=== PATIENT | male | born 1970 | race Caucasian/White ===

== ENCOUNTER 2017-02-18 10:17 | Observation (INO) | payer BC ==
[2017-02-18] MEDS ORDERED: Sodium Chloride 0.9% 1,000 ML IV STA (11:18)
[2017-02-18 11:26] VITALS: O2SAT 98
[2017-02-18 11:43] LABS: ADD MANUAL DIFF? NO
[2017-02-18 11:46] LABS: PH,URINE 6.5 (4.7-8.0); URINE APPEARANCE CLEAR (CLEAR); URINE BILIRUBIN NEGATIVE (NEGATIVE); URINE BLOOD TRACE-LYSED (NEGATIVE); URINE COLOR YELLOW (YELLOW); URINE GLUCOSE (UA) NEGATIVE (NEGATIVE); URINE KETONE NEGATIVE (NEGATIVE); URINE LEUKOCYTE ESTERASE NEGATIVE Leu/uL (NEGATIVE); URINE PROTEIN NEGATIVE mg/dL (<30 mg/dL); URINE UROBILINOGEN 0.2 E.U./dL (<1 E.U./dL)
[2017-02-18 11:52] LABS: BASO # 0.02 K/mm3 (0.0-2.0); BASO % 0.3 % (0.0-3.0); EOS % 0.3 % (1.5-5.0); GRAN # 3.94 (1.4-6.5); GRAN % 64.5 % (50.0-68.0); HEMATOCRIT 43.5 % (42.0-52.0); LYMPH # 1.7 (1.2-3.4); MEAN CELL VOLUME 87.5 fL (80.0-105.0); MEAN CORPUSCULAR HEMOGLOBIN 30.4 pg (25.0-35.0); MEAN CORPUSCULAR HGB CONC 34.7 g/dl (31.0-37.0); MEAN PLATELET VOLUME 10.4 fl (7.0-11.0); MONO # 0.4 (0.1-0.6); MONO % 6.9 % (1.0-6.0); PLATELET COUNT 192 10^3/uL (120.0-450.0); RED CELL DISTRIBUTION WIDTH 13.5 % (11.5-14.5); WHITE BLOOD COUNT 6.1 10^3/ul (4.5-11.0)
[2017-02-18 11:56] LABS: URINE RBC NEGATIVE /hpf (0-2); URINE WBC NEGATIVE /hpf (0-6)
[2017-02-18 11:58] LABS: INR 1.06 (0.93-1.08); PARTIAL THROMBOPLASTIN TIME 29.2 Seconds (23.7-30.8)
--- NOTE | 2017-02-18 11:58 | ED PDOC ---
Arrival/HPI - General Chief Complaint: Syncope Time Seen by Provider: 02/18/17 11:04 Historian: Patient - History of Present Illness Narrative History of Present Illness (Text): 02/18/17 11:15 A 46 year old male, who denies any significant past medical history, presents to the emergency department complaining of an episode of amnesia all day yesterday. Patient reports he cannot recall any events from yesterday. He states his co-workers, and boss said he was acting appropriately yesterday. Patient does not remember going to work, working, coming home or going to sleep. He says he only remembers waking up in the morning. Patient currently complains a of slow onset headache but it is not the worse headache of his life. He denies any chest pain, vision changes, dizziness, or any other complaints at this time. PMD: Dr. Amaro Time/Duration: Other (yesterday all day) Symptom Onset: Other Symptom Course: Resolved Quality: Other Activities at Onset: Rest Context: Other Past Medical History - Provider Review Nursing Documentation Reviewed: Yes - Infectious Disease Hx of Infectious Diseases: None - Psychiatric Hx Substance Use: No Family/Social History - Physician Review Nursing Documentation Reviewed: Yes Family/Social History: No Known Family HX Smoking Status: Never Smoked Hx Alcohol Use: No Hx Substance Use: No Allergies/Home Meds Allergies/Adverse Reactions: Allergies No Known Allergies Allergy (Verified 02/18/17 10:57) Home Medications: Home Meds Medication Instructions Recorded Confirmed No Known Home Med 02/18/17 02/18/17 Physical Exam - Physical Exam Narrative Physical Exam (Text): - Review of Systems Constitutional: Normal. absent: Fatigue, Weight Change, Fevers Eyes: Normal ENT: Normal Respiratory: Normal absent: SOB, Cough, Sputum Cardiovascular: Normal absent: Chest pain, Palpitations, Syncope Gastrointestinal: Normal absent: Abdominal pain, Diarrhea, Nausea, Vomiting Genitourinary: Normal. absent: Dysuria, Frequency, Hematuria Musculoskeletal: Normal. absent: Arthralgias, Back Pain, Neck Pain Skin: Normal Neurological: Amnesia all day yesterday. Mild headache. absent: Focal Weakness Endocrine: Normal Hemo/Lymphatic: Normal Psychiatric: Normal - Physical exam Patient appears age appropriate, speaking full sentences without difficulty - Systems Exam Head: Present: Atraumatic, Normocephalic Pupils: Present: PERRL Extraocular Muscles: Present: EOMI Conjunctiva: Present: Normal Mouth: Present: Moist Mucous Membranes Neck: Present: Normal Range of Motion. No: MIDLINE TENDERNESS, Paraspinal Tenderness Respiratory/Chest: Present: Clear to Auscultation, Good Air Exchange. No: Respiratory Distress, Accessory Muscle Use, Tachypneic Cardiovascular: Present: Regular Rate and Rhythm, Normal S1, S2, Peripheral Pulses Present. No: Murmurs Abdomen: Present: Normal Bowel Sounds, No: Tenderness, Peritoneal Signs, Rebound, Guarding, Distention Back: Present: Normal Inspection. No: Midline Tenderness, Paraspinal Tenderness Upper Extremity: Present: Normal Inspection. No: Cyanosis, Edema Lower Extremity: Present: Normal Inspection. No: Edema Neurological: Present: GCS=15, Speech Normal, cranial nerves II through XII fully intact with no cerebellar abnormality, neuro-sensory fully intact. No focal neurological deficits. Skin: Present: Warm, Dry, Normal Color. No: Rashes Lymphatic: Present: OX3, NI, NC Psychiatric: Present: Alert, Oriented x 3, Normal Insight, Normal Concentration Vital Signs Reviewed: Yes Vital Signs Temp Pulse Resp BP Pulse Ox 02/18/17 11:21 77 18 145/81 98 02/18/17 10:45 97.9 F 71 18 145/88 100 Temperature: Afebrile Blood Pressure: Normal Pulse: Regular Respiratory Rate: Normal Appearance: Positive for: Well-Appearing, Non-Toxic, Comfortable Pain Distress: None Mental Status: Positive for: Alert and Oriented X 3 Medical Decision Making ED Course and Treatment: 02/18/17 11:15 Impression: A 46 year old male with an episode of amnesia and a mild headache. Physical examination reveals no acute findings. Differential Diagnosis include but are not limited to: global amnesia Plan: -- EKG -- Head CT -- Chest X-ray -- Labs -- Urinalysis -- Toradol and IV Fluids -- Consult PMD about inpatient vs. outpatient observation -- Reassess and disposition Progress Notes: EKG: Ordered, reviewed, and independently interpreted by me. Rate : 70 BPM Rhythm : NSR Interpretation : No ST-segment elevations, normal intervals. 02/18/17 11:27 Dr. Amaro at bedside evaluating the patient. He states to give the patient contact information for Dr. Cross (neurologist) for outpatient follow up. He also states to give the patient norvasc 2.5mg daily for his hypertension. 02/18/17 12:[address]: Creator and Dictator: FARHEEN GARCIA MD IMPRESSION: Ill-defined approximately 2.4 x 3.2 cm mixed density mass in the right occipital lobe with cystic components anteriorly and probable hemorrhagic component posteriorly. The differential considerations include vascular malformation and neoplasm amongst others. A dedicated MRI of the brain without and with intravenous contrast is recommended for further evaluation. 02/18/17 12:10 Chest X-ray: Creator and Dictator: FARHEEN GARCIA MD IMPRESSION: No active pulmonary disease. 02/18/17 12:[address] Garcia (radiologist), who recommends a MRI of the brain. MRI of brain ordered. On reevaluation, the patient states his headache has completely resolved. On repeat examination there are no focal neurological deficits. Neurology and Neurosurgery paged. 02/18/17 12:[address] Emerson (Neurosurgery). 02/18/17 13:[address] Darlin Cross, who is aware and states to start the patient on prophylaxis for seizures. He states to place patient on Keppra 500mg twice daily. Dr. Cross says he will come see patient in the hospital. 02/18/17 13:[address] Amaro, who is aware and accepts the patient under his services. I have discussed the results and plan with the patient, who expresses understanding. Patient given the opportunity to ask question, all questions were answered and there is agreement with the plan to be admitted to the hospital. 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 Mild surrounding vasogenic edema and enhancement laterally. No evidence of acute infarction or hemorrhage. decadron ordered - Lab Interpretations Lab Results: 02/18/17 11:40 02/18/17 11:40 Lab Results 02/18/17 11:40: WBC 6.1, RBC 4.97, Hgb 15.1, Hct 43.5, MCV 87.5, MCH 30.4, MCHC 34.7, RDW 13.5, Plt Count 192, MPV 10.4, Gran % 64.5, Lymph % (Auto) 28.0, [place] % (Auto) 6.9 H, Eos % (Auto) 0.3 L, Baso % (Auto) 0.3, Gran # 3.94, Lymph # 1.7 , [place] # 0.4, Eos # 0.0, Baso # 0.02, PT 11.5, INR 1.06, APTT 29.2, Sodium 139, Potassium 3.9, Chloride 103, Carbon Dioxide 27, Anion Gap 13, BUN 10, Creatinine 0.8, Est GFR ( Amer) > 60, Est GFR (Non-Af Amer) > 60, Random Glucose 115 H, Calcium 9.4, Total Bilirubin 0.6, AST 28, ALT 26, Alkaline Phosphatase 65, Total Protein 7.9, Albumin 4.4, Globulin 3.6, Albumin/Globulin Ratio 1.2 02/18/17 11:20: Urine Color Yellow, Urine Appearance Clear, Urine pH 6.5, Ur Specific [place] 1.015, Urine Protein Negative, Urine Glucose (UA) Negative, Urine Ketones Negative, Urine Blood Trace-lysed H, Urine Nitrate Negative, Urine Bilirubin Negative, Urine Urobilinogen 0.2, Ur Leukocyte Esterase Negative , Urine RBC Negative, Urine WBC Negative, Ur Epithelial Cells None I have reviewed the lab results: Yes - RAD Interpretation Radiology Orders: 02/18/17 11:17 HEAD W/O CONTRAST [CT] Stat 02/18/17 11:18 CHEST ONE VIEW [RAD] Stat 02/18/17 12:23 BRAIN W & WO CONTRAST [MRI] Stat - Medication Orders Current Medication Orders: Ibuprofen (Motrin Tab) 600 mg PO Q6H PRN PRN Reason: Pain, Mild (1-3) Levetiracetam (Keppra) 500 mg PO BID MIHAI Ondansetron HCl (Zofran Inj) 4 mg IVP Q6H PRN PRN Reason: Nausea/Vomiting Discontinued Medications Dexamethasone (Decadron Inj) 10 mg IVP STAT STA Stop: 02/18/17 14:48 Gadodiamide (Omniscan No Safepak) Confirm Administered Dose 4,305 mg IV .STK- MED ONE Stop: 02/18/17 12:35 Sodium Chloride (Sodium Chloride 0.9%) 1,000 mls @ 1,000 mls/hr IV .Q1H STA Stop: 02/18/17 12:17 Last Admin: 02/18/17 11:41 Dose: 1,000 MLS/HR eMAR Start Stop Document 02/18/17 11:41 JOL (Rec: 02/18/17 11:41 [facility]-[id number]) Intravenous Solution Start Date 02/18/17 Start Time 11:41 End Date 02/18/17 End time 12:41 Total Infusion Time 60 Ketorolac Tromethamine (Toradol) 15 mg IVP STAT STA Stop: 02/18/17 11:19 Last Admin: 02/18/17 11:41 Dose: 15 MG IVP Administration Document 02/18/17 11:41 JOL (Rec: 02/18/17 11:41 [facility]-[id number]) Charges for Administration # of IVP Administrations 1 - Scribe Statement The provider has reviewed the documentation as recorded by the Scribe Jose C Sun Provider Scribe Attestation: All medical record entries made by the Scribe were at my direction and personally dictated by me. I have reviewed the chart and agree that the record accurately reflects my personal performance of the history, physical exam, medical decision making, and the department course for this patient. I have also personally directed, reviewed, and agree with the discharge instructions and disposition. Disposition/Present on Arrival - Present on Arrival Any Indicators Present on Arrival: No History of DVT/PE: No History of Uncontrolled Diabetes: No Urinary Catheter: No History of Decub. Ulcer: No History Surgical Site Infection Following: None - Disposition Have Diagnosis and Disposition been Completed?: Yes Diagnosis: Amnesia Disposition: HOSPITALIZED Disposition Time: :27 Patient Plan: Admission Patient Problems: Current Active Problems Problem Status Diagnosed Amnesia Acute Condition: FAIR
[2017-02-18 12:00] LABS: ALB/GLOB RATIO 1.2 (1.1-1.8); ALKALINE PHOSPHATASE 65 U/L (38-133); ALT/SGPT 26 U/L (7-56); AST/SGOT 28 U/L (15-59); BILIRUBIN,TOTAL 0.6 mg/dL (0.2-1.3); BLOOD UREA NITROGEN 10 mg/dL (7-21); CALCIUM 9.4 mg/dL (8.4-10.5); CARBON DIOXIDE 27 mmol/L (21-33); CHLORIDE 103 mmol/L (98-107); GFR AFRICAN-AMERICAN > 60; GLUCOSE,RANDOM 115 mg/dL (70-110); POTASSIUM 3.9 mmol/L (3.6-5.0); SODIUM 139 mmol/L (132-148); TOTAL PROTEIN 7.9 g/dL (5.8-8.3)
--- NOTE | 2017-02-18 12:04 | CT ---
PROCEDURE: CT HEAD WITHOUT CONTRAST. HISTORY: JAVED x2 weeks COMPARISON: None available. TECHNIQUE: Axial computed tomography images were obtained through the head/brain without intravenous contrast. Radiation dose: Total exam DLP = 774.23 pacs mGy-cm. FINDINGS: HEMORRHAGE: No intracranial hemorrhage. BRAIN: There is an ill-defined approximately 2.4 x 3.2 cm mixed attenuation mass in the right occipital lobe with low-attenuation areas anteriorly and a high attenuation area posteriorly, the high attenuation area measures 2.0 x 1.7 cm. There is no evidence of midline shift or herniation. VENTRICLES: The ventricles are normal in size, shape and configuration. . There are bilateral small chronic subdural hygromas. CALVARIUM: The skull base and calvarium are normal. PARANASAL SINUSES: Predominantly clear. MASTOID AIR CELLS: Predominantly clear. OTHER FINDINGS: None. IMPRESSION: Ill-defined approximately 2.4 x 3.2 cm mixed density mass in the right occipital lobe with cystic components anteriorly and probable hemorrhagic component posteriorly. The differential considerations include vascular malformation and neoplasm amongst others. A dedicated MRI of the brain without and with intravenous contrast is recommended for further evaluation.
--- NOTE | 2017-02-18 12:09 | RAD ---
PROCEDURE: CHEST RADIOGRAPH, 1 VIEW HISTORY: cough COMPARISON: None available. FINDINGS: LUNGS: The lungs are well inflated and clear PLEURA: No pneumothorax or pleural fluid seen. CARDIOVASCULAR: Normal. OSSEOUS STRUCTURES: No significant abnormalities. VISUALIZED UPPER ABDOMEN: Normal. OTHER FINDINGS: None. IMPRESSION: No active pulmonary disease.
[2017-02-18] MEDS ORDERED: Gadodiamide 287 MG/ML VIAL (15ML) IV ONE (12:34)
--- NOTE | 2017-02-18 14:42 | MRI ---
PROCEDURE: MRI BRAIN WITH AND WITHOUT CONTRAST HISTORY: mass COMPARISON: None. TECHNIQUE: Multiplanar, multisequence MR images of the brain were obtained with and without intravenous contrast enhancement. FINDINGS: HEMORRHAGE: None DWI: No evidence of an acute or early subacute infarction. BRAIN PARENCHYMA: There is a 2.8 x 2.3 x 2.6 cm tangle of flow voids with mild surrounding vasogenic edema in the right anterior occipital lobe. There is enlarged right posterior cerebral artery flow void and an enlarged cortical vein draining into the straight sinus. There is no evidence of acute hemorrhage. There is mild enhancement laterally. The hyperdense area in the posterior aspect of this lesion on CT examination was likely related to slow flow in the vessels. There is no acute territorial infarction. There is no midline shift or extra-axial fluid collection. The midline sagittal structures are normal. VENTRICLES: The ventricles are normal in size, shape and configuration. CRANIUM: There is normal bone marrow signal pattern. ORBITS: Grossly unremarkable. PARANASAL SINUSES/MASTOIDS: Clear VASCULAR SYSTEM: Skull base flow voids intact. OTHER FINDINGS: None . 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 Mild surrounding vasogenic edema and enhancement laterally. No evidence of acute infarction or hemorrhage.
[2017-02-18 15:47] VITALS: BMI 27.9
[2017-02-18] MEDS ORDERED: Influenza Vaccine 45 MCG/0.5 ml IM ONE (15:47)
[2017-02-18] MEDS ORDERED: Pneumococcal 23-Valent Vaccine IM ONE (15:47)
[2017-02-18 16:12] VITALS: RESP 18
--- NOTE | 2017-02-18 18:24 | CARD ---
APPROVED REPORT EKG Measurement Heart [id number] <Conclusion> Normal sinus rhythm Normal ECG
--- NOTE | 2017-02-19 02:26 | CON ---
DATE: 02/18/2017 HISTORY OF PRESENT ILLNESS: This is a 46-year-old male with a past medical history of a hea dache and amnesia for 1 or 2 days and patient does not recall the events and coworker and said t hat he was acting inappropriately and brought him here for further evaluation. PAST MEDICAL HISTORY: As above. SOCIAL HISTORY: Does not smoke and does not drink. ALLERGIES: No known drug allergy. PHYSICAL EXAMINATION: HEENT: Normocephalic, atraumatic. VITAL SIGNS: Blood pressure 145/88. NEUROLOGIC: Cranial nerves II through XII were tested. Pupils equal and reactive. EOM intact. Vis ual [place] full. No facial asymmetry. Tongue midline. MOTOR EXAMINATION: Moves all the extremities equally. Tone normal. Deep tendon reflexes are 1+. B oth plantars are downgoing. Sensory appears intact. Cerebellar gait normal. IMPRESSION: The patients MRI was done and shows possible arteriovenous malformation off the right oc cipital area and neurosurgery was called to consult. PLAN: Continue present management. We will follow up. Antoine Cross MD cc: [id number] TT: 02/19/2017 02:26:16 Confirmation # [id number] Dictation # [id number] danny
--- NOTE | 2017-02-19 08:36 | CON ---
DATE: 02/18/2017 This is a 46-year-old gentleman that experienced unusual amnesia the previous day, not remembering wh at occurred. It was presumed he most likely had a seizure and was postictal. He presented neurologica lly intact. CT of the brain and subsequently MRI documented a right parietooccipital arteriovenous malformation. There is no acute hemorrhage. There was no mass effect. IMPRESSION AND PLAN: I discussed with Dr. Sauceda of the Emergency Room that there really was no po int in admitting this patient. He should be loaded and treated with anticonvulsants and follow up in our office for what will have to be a detailed and extensive discussion regarding the options of vari ous treatments versus nontreatment of this lesion. There is nothing that could be offered to patient in [facility] itself. Андрей Emerson MD cc: [id number] TT: 02/19/2017 08:35:07 Confirmation # [id number] Dictation # [id number] mn
--- NOTE | 2017-02-19 08:51 | PN ---
DATE: 02/19/2017 I saw him resting comfortably in bed in room 267 with a cousin present. He has no amnesia at this ti me. He is very comfortable. No headaches, no shortness of breath, no chest pain. He is back to his old self, he tells me. We discussed at length his AV malformation in his brain and what is going on . He understands the situation. I am waiting for neuro and neurosurgery to give me an opinion if he needs to have surgery today, tomorrow and what medicines besides Keppra and Motrin he will need. He might need Decadron, not sure. He only got 1 dose in the Emergency Room. PHYSICAL EXAMINATION: VITAL SIGNS: He has a 97 temp, 65 pulse, 145/85 blood pressure, 18 respiratory rate. HEENT: Head is atraumatic, normocephalic. HEART: Regular rate. LUNGS: Clear to auscultation. ABDOMEN: Soft, nontender, positive bowel sounds. EXTREMITIES: No edema. He is on Keppra, Motrin, and Zofran. LABORATORY: He has a 6.1 white count, 15.1 hemoglobin, 192 platelets. Sodium 139, potassium 3.9, BU N 10, creatinine 0.8, sugar is 111, calcium is 9.4. AST is 28, ALT is 26, alk phos 65, total protein 7.9. Waiting for direction from the neurosurgeon. He has a brain arteriovenous malformation in the right anterior occiput. Luis Amaro DO cc: [id number] TT: 02/19/2017 08:50:49 Confirmation # [id number] Dictation # [id number] mn
--- NOTE | 2017-02-19 09:07 | HP ---
Yesterday, on 02/18/2017, I was called down to the ER with Dr. Joaquín Sauceda, the Emergency Room doctor, and I saw the patient. Discussed it with Joaquín, gave orders and I dictated an H and P . For whatever reason, it did not populate, so I am going to do an H and P for my yesterday's visit. HISTORY OF PRESENT ILLNESS: He is a 46-year-old man who presents to the Emergency Room with amnesia all day. First time it has ever happened to him. noticed it. He did not remember anything goi ng on at work or anything. No pain. He came to the Emergency Room with a slow headache. No chest p ain, no shortness of breath, no abdominal pain. PAST MEDICAL HISTORY: Really nothing. This is the first time he has had anything going on. FAMILY HISTORY: None. SOCIAL HISTORY: Never smoked, no alcohol, no drugs. ALLERGIES: No known drug allergies. HOME MEDICATIONS: He does not take any. He has been doing very well in his life until this amnesia episode and they are not sure why. In the bed at [facility] his blood pressure was a bit high at 145/88, 97.9 temp, 71 pulse, 18 respiratory rate, 100% O2 sat. REVIEW OF SYSTEMS: He has no vision changes, no hearing changes, no sore throat, no neck pain, no sh ortness of breath, no coughing, no mucus, no chest pain, no palpitations. Not dizzy. No abdominal p ain, diarrhea, nausea, vomiting. No problems urinating. No back pains or neck pains or extremity pa in. Skin is intact. He had amnesia all day, could not remember anything; mild headache. No focal w eakness. Just did not know what he did and it was very bizarre to him. PHYSICAL EXAMINATION: HEENT: His head is atraumatic, normocephalic. Extraocular muscles are intact. Pupils equal and gilson ctive to light. Throat moist, no erythema. NECK: Supple, no JVD. HEART: Regular rate. Normal S1, S2. LUNGS: Have decreased breath sounds, but clear to auscultation. No wheezes, no rhonchi, no rales. ABDOMEN: Soft, nontender, positive bowel sounds, no guarding, no rebound, no CVA tenderness. EXTREMITIES: He can move all extremities normally. SKIN: He has no skin issues. Skin is intact. NEUROLOGIC: GCS is 15. Normal speech. Cranial nerves II-XII intact. No focal deficits, just amnes ia for what he did during that day. He is alert and oriented x 3 at this time. Normal insight. He is calm. He is comfortable. He is well appearing. Nontoxic to look at him. He has no medical hist ory. LABORATORY DATA: He comes in, he has labs. He has a 6.1 white count, 15.1 hemoglobin, 43.5 hematocr it, 192 platelets. INR 1.06. Sodium 139, potassium 3.9, BUN 10, creatinine 0.8, GFR is greater than 60, sugar is 115, calcium is 9.4. Total bili is 0.6, AST is 28, ALT is 26, alkaline phosphatase 65, total protein 7.9, albumin is 4.4. Globulin is 3.6. Urine is clear, trace lysed blood. The EKG wa s normal sinus rhythm. The chest x-ray was clear to auscultation. The head CT showed an interesting finding - ill-defined approximate 2.4 x 3.2 cm mixed density mass in the right occipital lobe with c ystic components anteriorly and probably hemorrhagic component posteriorly. Differential diagnosis i s vascular malformation neoplasm. He then went for an MRI and it showed a 2.8 x 2.3 x 2.6 AV malform ation in the right anterior occipital lobe supplied by the right posterior cerebral artery, draining to the right sinus. He had a consult with Dr. Cross, the neurologist, who put him on Keppra. He mcallister d a dose of Decadron. A discussion was with Dr. Emerson, the neurosurgeon. He is in the hospital for arteriovenous malformation of the brain with amnesia. He will be on Keppra , Motrin and Zofran. Will see what neurosurgeon and neurologist have to say today. The H and P was done yesterday but did not populate, so I am doing it again. Luis Amaro DO cc: [id number] TT: 02/19/2017 09:07:03 mn
[2017-02-19 09:13] VITALS: BP 117/70; TEMP 98.2
[2017-02-19 09:44] VITALS: PULSE 82
--- NOTE | 2017-02-19 11:28 | DS ---
He is here in [facility] with an occipital AV malformation where he had amnesia. He is d oing better today. He will be home on Keppra, Motrin and Zofran. We will call the neurosurgeon, Dr. Emerson, for an appointment for an evaluation on the outpatient for a plan. He will see me also. Christopher cason is not going to go to work. He does mechanical work on cars. He will have Keppra, Motrin and Zofr an on his medication list. I will see him in the office this week, also Dr. Emerson this week. He was here for amnesia, also occipital arteriovenous malformation and he is in observation status. Luis Amaro DO cc: [id number] TT: 02/19/2017 11:27:28 en
== END 2017-02-19 11:26 | disposition home or self-care (01) ==
LOC: ED 10:17 → ERH 13:31 → INTOOBSV 13:31 → ERH 13:54 → 3RNO 15:16
PROVIDERS: ADMIT Family Medicine; ATTEND Family Medicine
DX: Q28.2 Arteriovenous malformation of cerebral vessels (principal); G93.6 Cerebral edema; R41.3 Other amnesia; R51 Headache
CPT/HCPCS: 70450; 70553; 71010; 80053; 81001; 82948; 85025; 85610; 85730; 93005; 96361; 96374; 99285; A9579; G0378; J1100; J1885; J7040